=== PATIENT | female | born 1955 | race Two or more races ===

== ENCOUNTER 2022-07-31 12:38 | Emergency (ER) | payer OTHER ==
[~2022-07-31] VITALS: Ht 149.9 cm; Wt 73.9 kg
--- NOTE | 2022-07-31 12:58 | NUR ---
DR GOLDMAN W/ PT FOR EVAL, STAFF W/ PT FOR TRANSLATION
--- NOTE | 2022-07-31 13:08 | NUR ---
[employer] TECHNICIAN AT BEDSIDE FOR XRAY
[2022-07-31] MEDS ORDERED: KETOROLAC TROMETHAMINE INJ 30 MG/ML VIAL ONE (13:30)
--- NOTE | 2022-07-31 13:42 | NUR ---
TORADOL GIVEN IM LEFT DELTOID INDICATED, DAMARI WELL.
[2022-07-31] MEDS ORDERED: KETO10TA2 PO (13:48)
[2022-07-31] MEDS ORDERED: KETOROLAC TROMETHAMINE INJ 30 MG/ML VIAL IM ONE (14:00)
--- NOTE | 2022-07-31 14:07 | NUR ---
Patient discharged to home in stable condition. Written and verbal after care instructions given. Patient verbalizes understanding of instruction.
[2022-07-31 14:09] VITALS: BP 182/88
== END 2022-07-31 14:11 | disposition home or self-care (01) ==
LOC: ER 12:48
DX: M77.32 Calcaneal spur, left foot (principal); I10 Essential (primary) hypertension; Z91.040 Latex allergy status; Z79.899 Other long term (current) drug therapy
CPT/HCPCS: 99283; 96372; 73630; J1885

== ENCOUNTER 2023-02-12 09:52 | Emergency (ER) | payer OTHER ==
[~2023-02-12] VITALS: Ht 149.9 cm; Wt 70.8 kg
[~2023-02-12 09:52] MED LIST: KETO10TA2 PO
[2023-02-12] MEDS ORDERED: IBUP-1955 PO (11:19)
[2023-02-12 11:36] VITALS: BP 177/86; TEMP 98.4; O2SAT 99
== END 2023-02-12 11:37 | disposition home or self-care (01) ==
LOC: ER 09:59
DX: S92.212A Displaced fracture of cuboid bone of left foot, initial encounter for closed fracture (principal); I10 Essential (primary) hypertension; Z88.8 Allergy status to other drugs, medicaments and biological substances; X50.1XXA Overexertion from prolonged static or awkward postures, initial encounter; Y93.89 Activity, other specified; Y92.89 Other specified places as the place of occurrence of the external cause; Y99.8 Other external cause status
CPT/HCPCS: 73610-TC; 73630-TC

== ENCOUNTER 2023-09-04 11:37 | Emergency (ER) | payer OTHER ==
[~2023-09-04] VITALS: Ht 152.4 cm; Wt 77.1 kg
[~2023-09-04 11:37] MED LIST changes: +IBUP-1955 PO
[2023-09-04] MEDS ORDERED: AMOXICILLIN TRIHYDRATE 250 MG CAPSULE ONE (12:01)
[2023-09-04] MEDS ORDERED: AMOX500T2 PO (12:02)
[2023-09-04] MEDS ORDERED: IBUPROFEN 600 MG TABLET ONE (12:02)
[2023-09-04] MEDS: IBUPROFEN 600 MG TABLET PO ONE (12:06)
[2023-09-04] MEDS: AMOXICILLIN TRIHYDRATE 500 MG CAPSULE PO ONE (12:06)
[2023-09-04 12:25] VITALS: BP 134/78; TEMP 98.8; O2SAT 98
== END 2023-09-04 12:26 | disposition home or self-care (01) ==
LOC: ER 11:45
DX: J32.9 Chronic sinusitis, unspecified (principal); I10 Essential (primary) hypertension; Z88.8 Allergy status to other drugs, medicaments and biological substances

== ENCOUNTER 2023-12-27 10:18 | Emergency (ER) | payer OTHER ==
[~2023-12-27] VITALS: Ht 144.8 cm; Wt 70.8 kg
[~2023-12-27 10:18] MED LIST changes: +AMOX500T2 PO
[2023-12-27 11:03] LABS: BASOPHILS % (AUTO) 0.5 % (0.0-2.0); EOSINOPHILS # (AUTO) 0.1 K/uL (0.0-0.7); EOSINOPHILS % (AUTO) 2.2 % (0.0-6.0); HEMATOCRIT 39 % (33-45); LYMPHOCYTES # (AUTO) 1.6 K/uL (0.8-4.8); LYMPHOCYTES % (AUTO) 25.7 % (20.0-44.0); MEAN CORPUSCULAR HEMOGLOBIN 30 PG (26.0-33.0); MEAN CORPUSCULAR HGB CONC 33 g/dl (31.0-36.0); MEAN CORPUSCULAR VOLUME 89 fL (82-100); MONOCYTES # (AUTO) 0.6 K/uL (0.1-1.30); NEUTROPHILS # (AUTO) 3.9 K/uL (1.8-8.9); NEUTROPHILS % (AUTO) 62.6 % (43.0-81.0); PLATELET COUNT (AUTO) 238 K/uL (150-450); WHITE BLOOD COUNT (AUTO) 6.2 K/uL (4.3-11.0)
[2023-12-27 11:10] LABS: CALCIUM, SERUM 8.6 mg/dL (8.5-10.1); CREATININE 0.7 mg/dL (0.6-1.3); POTASSIUM 3.9 mmol/L (3.5-5.1)
[2023-12-27 11:55] VITALS: BP 148/80; TEMP 98.4; O2SAT 98
== END 2023-12-27 11:56 | disposition home or self-care (01) ==
LOC: ER 11:04
DX: R00.2 Palpitations (principal); I10 Essential (primary) hypertension; Z79.899 Other long term (current) drug therapy; Z91.040 Latex allergy status
CPT/HCPCS: 36415; 80048-TC; 85025-TC